=== PATIENT | female | born 1975 | race African-American/Black ===

== ENCOUNTER → 2016-08-27 | Outpatient (CLI) | payer OTHER ==
[~2016-08-27] MED LIST: IBUPROFEN 600600 M1 PO
== END ==
LOC: RAD 11:28
DX: M25.512 Pain in left shoulder (principal)

== ENCOUNTER 2018-01-09 12:47 | Emergency (ER) | payer OTHER ==
[~2018-01-09] VITALS: Ht 162.6 cm; Wt 86.2 kg
--- NOTE | ~2018-01-09 | EKG ---
[address] [address] ELECTROCARDIOGRAM REPORT Name: BERNICE MCCLAIN Room #: DEP [facility]#: [id number] Admission: 01/09/18 Attend Phys: Discharge: 01/09/18 Date of : 79 Report #: [id number] THIS REPORT FOR: //name// [facility] ED Test Date: 2018-01-09 Test Time: 12:58:46 Pat Name: BERNICE MCCLAIN Department: Room: Gender: F [employer]: Deric SCOTT : 1975 Requested By: Ana Medrano Order Number: [id number] MD: Eric Garcia Measurements Intervals [place] Rate: 77 P: 34 DC: 162 QRS: 44 QRSD: 95 T: 26 QT: 392 QTc: 444 Interpretive Statements Sinus rhythm No previous ECG available for comparison Electronically Signed On 01-10-2018 7:01:36 CDT by Eric Garcia [email or web address] <ELECTRONICALLY SIGNED> By: Eric Garcia MD 01/10/18 0701 [id number] MD OBI Singh
[2018-01-09 13:13] LABS: ABSOLUTE NEUTROPHILS 5.9 thou/uL (1.4-8.2); BASOPHILS 0.6 % (0.0-2.0); EOSINOPHILS 1.2 % (0.0-3.0); HEMATOCRIT 34.9 % (37.0-47.0); HEMOGLOBIN 11.7 gm/dL (12.0-15.0); LYMPHOCYTES 27.5 % (24.0-44.0); MCH 27.4 pg (26.0-34.0); MCHC 33.6 g/dL (28.0-37.0); MCV 81.5 fL (80.0-100.0); PLATELET COUNT 243 thou/uL (150-400); POLYS 63.7 % (36.0-66.0); RBC 4.28 mil/uL (4.20-5.00); WBC 9.2 thou/uL (4.0-11.0)
[2018-01-09 13:21] LABS: ANION GAP 2 mmol/L (7-16); BUN 10 mg/dL (7-18); CALCIUM 8.9 mg/dL (8.5-10.1); CHLORIDE 103 mmol/L (98-107); CO2 30 mmol/L (21-32); CREATININE 0.8 mg/dL (0.6-1.0); GLUCOSE 99 mg/dL (74-106); POTASSIUM 3.5 mmol/L (3.5-5.1); SODIUM 135 mmol/L (136-145)
[2018-01-09 13:30] LABS: ALBUMIN 3.6 g/dL (3.4-5.0); LIPASE 105 U/L (73-393); SGOT 21 U/L (15-37); SGPT 31 U/L (30-65); TOTAL BILIRUBIN 0.2 mg/dL (<0.1-1.0); TOTAL PROTEIN 7.5 g/dL (6.4-8.2); TROPONIN-I < 0.04 ng/mL (<0.06)
[2018-01-09] MEDS ORDERED: PREDNISONE 20 M20 MG PO (15:28)
[2018-01-09] MEDS ORDERED: MOBIC7.5 MG PO (15:28)
[2018-01-09 15:48] VITALS: BP 158/92
== END 2018-01-09 15:50 | disposition home or self-care (01) ==
LOC: ER 12:47
PROVIDERS: Nurse Practitioner Family
DX: R07.9 Chest pain, unspecified (principal); Z88.6 Allergy status to analgesic agent